=== PATIENT | male | born 1965 | race American Indian/Alaskan Native ===

== ENCOUNTER 2016-09-25 12:24 | Outpatient (CLI) | payer OTHER, MEDICARE ==
[2016-09-25 12:40] LABS: Mean Corpuscular HGB Conc 30 % (32-34); Red Blood Count 6.13 M/mm3 (3.65-5.03); Red Cell Distribution Width 18.1 % (13.2-15.2); White Blood Count 4.5 K/mm3 (4.5-11.0)
[2016-09-25 12:50] LABS: Hematocrit 41.8 % (35.5-45.6); Hemoglobin 12.6 gm/dl (11.8-15.2); Mean Corpuscular Hemoglobin 21 pg (28-32); Mean Corpuscular Volume 68 fl (84-94)
[2016-09-25 12:54] LABS: Albumin 4.1 g/dL (3.9-5); Albumin/Globulin Ratio 1.4 %; BUN/Creatinine Ratio 15.9; Bilirubin,Total 0.3 mg/dL (0.1-1.2); Calcium 9.2 mg/dL (8.4-10.2); Chloride 107.5 mmol/L (98-107); Total Protein 7.1 g/dL (6.3-8.2)
[2016-09-25 12:59] LABS: Platelet Count 151 K/mm3 (140-440)
== END 2016-09-25 12:25 | disposition home or self-care (01) ==
LOC: LAB 12:24
PROVIDERS: ATTEND Internal Medicine
DX: I12.0 Hypertensive chronic kidney disease with stage 5 chronic kidney disease or end stage renal disease (principal); N18.5 Chronic kidney disease, stage 5; E11.22 Type 2 diabetes mellitus with diabetic chronic kidney disease; E08.21 Diabetes mellitus due to underlying condition with diabetic nephropathy; M18.9 Osteoarthritis of first carpometacarpal joint, unspecified; I82.401 Acute embolism and thrombosis of unspecified deep veins of right lower extremity; Z94.0 Kidney transplant status; Z94.4 Liver transplant status
CPT/HCPCS: 36415; 80053; 80197; 82570; 84156; 85027

== ENCOUNTER 2017-02-06 14:00 | Outpatient (CLI) | payer MEDICARE ==
[2017-02-06 14:26] LABS: Basophils % (Auto) 0.7 % (0.0-1.8); Eosinophils % (Auto) 0.8 % (0.0-4.3); Mean Corpuscular HGB Conc 30 % (32-34); Mean Corpuscular Volume 71 fl (84-94); Platelet Count 160 K/mm3 (140-440); Red Blood Count 5.78 M/mm3 (3.65-5.03); Red Cell Distribution Width 17.9 % (13.2-15.2); White Blood Count 7.6 K/mm3 (4.5-11.0)
[2017-02-06 14:34] LABS: Hemoglobin 12.3 gm/dl (11.8-15.2); Mean Corpuscular Hemoglobin 21 pg (28-32)
[2017-02-06 14:52] LABS: Albumin 4.2 g/dL (3.9-5); Albumin/Globulin Ratio 1.6 %; BUN/Creatinine Ratio 18.5; Bilirubin,Total 0.5 mg/dL (0.1-1.2); Calcium 8.8 mg/dL (8.4-10.2); Chloride 103.9 mmol/L (98-107); Potassium 5.1 mmol/L (3.6-5.0); Total Protein 6.9 g/dL (6.3-8.2)
== END 2017-02-06 14:01 | disposition home or self-care (01) ==
LOC: LAB 14:00
PROVIDERS: ATTEND Internal Medicine
DX: I12.0 Hypertensive chronic kidney disease with stage 5 chronic kidney disease or end stage renal disease (principal); N18.5 Chronic kidney disease, stage 5; E11.22 Type 2 diabetes mellitus with diabetic chronic kidney disease; R10.10 Upper abdominal pain, unspecified; E87.5 Hyperkalemia; R93.5 Abnormal findings on diagnostic imaging of other abdominal regions, including retroperitoneum; Z94.0 Kidney transplant status
CPT/HCPCS: 36415; 80053; 80197; 82570; 84156; 85025

== ENCOUNTER 2017-03-18 11:11 | Outpatient (CLI) | payer MEDICARE ==
[2017-03-18 11:23] LABS: Basophils % (Auto) 0.5 % (0.0-1.8); Eosinophils % (Auto) 1.6 % (0.0-4.3); Mean Corpuscular HGB Conc 30 % (32-34); Mean Corpuscular Volume 71 fl (84-94); Platelet Count 139 K/mm3 (140-440); Red Blood Count 5.91 M/mm3 (3.65-5.03); Red Cell Distribution Width 16.1 % (13.2-15.2)
[2017-03-18 11:24] LABS: Hematocrit 41.9 % (35.5-45.6); Hemoglobin 12.7 gm/dl (11.8-15.2); Mean Corpuscular Hemoglobin 22 pg (28-32)
[2017-03-18 11:47] LABS: Albumin 3.8 g/dL (3.9-5); Albumin/Globulin Ratio 1.3 %; BUN/Creatinine Ratio 13.52; Bilirubin,Total 0.5 mg/dL (0.1-1.2); Chloride 104.2 mmol/L (98-107); Potassium 4.3 mmol/L (3.6-5.0); Total Protein 6.7 g/dL (6.3-8.2)
== END 2017-03-18 11:12 | disposition home or self-care (01) ==
LOC: LAB 11:11
PROVIDERS: ATTEND Internal Medicine
DX: I12.9 Hypertensive chronic kidney disease with stage 1 through stage 4 chronic kidney disease, or unspecified chronic kidney disease (principal); E11.22 Type 2 diabetes mellitus with diabetic chronic kidney disease; N18.5 Chronic kidney disease, stage 5; E87.5 Hyperkalemia; R93.5 Abnormal findings on diagnostic imaging of other abdominal regions, including retroperitoneum; Z94.0 Kidney transplant status; R10.10 Upper abdominal pain, unspecified
CPT/HCPCS: 36415; 80053; 80197; 82570; 84156; 85025